=== PATIENT | female | born 1930 | race Caucasian/White ===

== ENCOUNTER 2017-09-18 18:39 | Emergency (ER) | payer OTHER, MEDICAID ==
[~2017-09-18] VITALS: Ht 160 cm; Wt 68.0 kg
[2017-09-18 18:40] VITALS: BP_SYST 129
[2017-09-18 19:23] LABS: BASOPHILS % (AUTO) 0.3 % (0.0-2.0); EOSINOPHILS # (AUTO) 0.1 K/uL (0.0-0.4); HEMATOCRIT 34.9 % (36-48); HEMOGLOBIN 11.9 g/dL (12.0-16.0); LYMPHOCYTES # (AUTO) 1.4 K/uL (1.0-5.5); LYMPHOCYTES % (AUTO) 19.2 % (20.5-51.5); MEAN CORPUSCULAR HEMOGLOBIN 32 pg (27-31); MEAN CORPUSCULAR HGB CONC 34 % (32-36); MEAN CORPUSCULAR VOLUME 94 fL (79.0-98.0); MONOCYTES # (AUTO) 0.4 K/uL (0.0-1.0); MONOCYTES % (AUTO) 5.9 % (1.7-9.3); NEUTROPHILS # (AUTO) 5.4 K/uL (1.8-7.7); NEUTROPHILS % (AUTO) 73.6 % (40.0-70.0); PLATELET COUNT (AUTO) 277 K/uL (130-430); RED BLOOD CELL COUNT(AUTO) 3.71 MIL/uL (4.2-6.2); RED CELL DISTRIBUTION WIDTH 13.1 % (9.0-15.0); WHITE BLOOD COUNT (AUTO) 7.3 K/uL (4.8-10.8)
[2017-09-18 19:24] LABS: BILIRUBIN,URINE NEGATIVE (NEGATIVE); BLOOD, URINE NEGATIVE (NEGATIVE); CLARITY/URINE CLOUDY (CLEAR); COLOR,URINE YELLOW (YELLOW); GLUCOSE,URINE NEGATIVE (NEGATIVE); KETONES,URINE TRACE (NEGATIVE); LEUKOCYTE ESTERASE ,URINE 1+ (NEGATIVE); NITRITE, URINE NEGATIVE (NEGATIVE); PROTEIN URINE TRACE (NEGATIVE); UROBILINOGEN,URINE 0.2 (0.2-1.0)
[2017-09-18 19:36] LABS: ANION GAP 9 (5-15); CHLORIDE 104 mmol/L (98-107); CREATININE 0.94 mg/dL (0.55-1.30); GLUCOSE 125 mg/dL (70-99); POTASSIUM 3.5 mmol/L (3.5-5.1); SODIUM SERUM 138 mmol/L (136-145); UREA NITROGEN, BLOOD 16 mg/dL (8-21)
[2017-09-18 19:41] LABS: ALANINE AMINOTRANSFERASE 13 U/L (12-78); ALBUMIN 3.2 g/dL (3.4-4.8); ASPARTATE AMINOTRANSFERASE 10 U/L (10-37); TOTAL BILIRUBIN 1.8 mg/dL (0.0-1.0)
[2017-09-18 19:45] LABS: BARBITURATE, URINE NEGATIVE (NEG <=200); BENZODIAZEPINE, URINE NEGATIVE (NEG <=150); CANNABINOID, URINE NEGATIVE (NEG <=50); COCAINE, URINE NEGATIVE (NEG <=150); METHAMPHETAMINES SCREEN,URINE NEGATIVE (NEG <=500); URINE AMPHETAMINE NEGATIVE (NEG <=500); URINE METHADONE NEGATIVE (NEG <=200)
[2017-09-18 19:46] LABS: OPIATE, URINE NEGATIVE (NEG <=100); PHENCYCLIDINE SCREEN,URINE NEGATIVE (NEG <=25); UR TRICYCLIC ANTIDEPRESSANTS NEGATIVE (NEG <=300); URINE OXYCODONE SCREEN NEGATIVE (NEG <=100); URINE PROPOXYPHENE SCREEN NEGATIVE (NEG <=300)
[2017-09-18 20:02] LABS: BACTERIA,URINE MANY /HPF (None Seen); MUCUS,URINE None Seen /LPF (None Seen); RBC,URINE 0-3 /HPF (0-3)
[2017-09-18 20:03] LABS: URINE AMORPHOUS URATE 3+ /HPF (None Seen)
[2017-09-18] MEDS: cefTRIAXone 1 GM VIAL IM ONE (22:46)
[2017-09-18 23:46] VITALS: BP_SYST 143
== END 2017-09-18 23:46 | disposition home or self-care (01) ==
LOC: SED 18:39
DX: N39.0 Urinary tract infection, site not specified (principal); R55 Syncope and collapse; I10 Essential (primary) hypertension
CPT/HCPCS: 36415; 70450; 71045; 80053; 80307; 81000; 83605; 84484; 85025; 85610; 85730; 87040; 87086; 87186; 93005; 96372; 99285; J0696

== ENCOUNTER 2020-09-08 13:31 | Inpatient (IN) | payer OTHER, SELFPAY ==
[~2020-09-08] VITALS: Ht 170.2 cm; Wt 71.7 kg
[2020-09-08 13:34] VITALS: BP_SYST 121
[2020-09-08] MEDS ORDERED: FURO-149 PO (13:54)
[2020-09-08] MEDS ORDERED: LISI20TA30 PO (13:54)
[2020-09-08] MEDS ORDERED: ESCI5TAB16 PO (13:54)
[2020-09-08] MEDS ORDERED: ASPI-1393 PO (13:54)
[2020-09-08] MEDS ORDERED: LIP20 PO (13:54)
[2020-09-08] MEDS ORDERED: BISA-95 PO (13:54)
[2020-09-08] MEDS ORDERED: NACL 0.9% 1,000 ML IV ONE (14:00)
[2020-09-08] MEDS ORDERED: SENN8.6T19 PO (14:02)
[2020-09-08] MEDS ORDERED: LORA-259 PO (14:02)
[2020-09-08] MEDS ORDERED: ATRMDI INH (14:02)
[2020-09-08] MEDS ORDERED: OLAN2.5T29 PO (14:02)
[2020-09-08] MEDS ORDERED: NITR0.4T47 SL (14:02)
[2020-09-08 14:17] LABS: BASOPHILS # (AUTO) 0.1 K/uL (0.0-0.2); BASOPHILS % (AUTO) 0.6 % (0.0-2.0); EOSINOPHILS # (AUTO) 0.1 K/uL (0.0-0.4); EOSINOPHILS % (AUTO) 0.5 % (0.0-4.0); HEMATOCRIT 38.5 % (36-48); HEMOGLOBIN 12.6 g/dL (12.0-16.0); LYMPHOCYTES # (AUTO) 1.9 K/uL (1.0-5.5); LYMPHOCYTES % (AUTO) 19.3 % (20.5-51.5); MEAN CORPUSCULAR HEMOGLOBIN 31 pg (27-31); MEAN CORPUSCULAR HGB CONC 33 % (32-36); MEAN CORPUSCULAR VOLUME 95 fL (79.0-98.0); MONOCYTES # (AUTO) 0.7 K/uL (0.0-1.0); MONOCYTES % (AUTO) 6.7 % (1.7-9.3); NEUTROPHILS # (AUTO) 7.3 K/uL (1.8-7.7); NEUTROPHILS % (AUTO) 72.9 % (40.0-70.0); PLATELET COUNT (AUTO) 286 K/uL (130-430); RED BLOOD CELL COUNT(AUTO) 4.07 MIL/uL (4.2-6.2); RED CELL DISTRIBUTION WIDTH 13.3 % (9.0-15.0)
[2020-09-08 14:28] LABS: ANION GAP 7 (5-15); CHLORIDE 108 mmol/L (98-107); CREATININE 1.46 mg/dL (0.55-1.30); GLUCOSE 137 mg/dL (70-99); POTASSIUM 5.2 mmol/L (3.5-5.1); SODIUM SERUM 142 mmol/L (136-145); UREA NITROGEN, BLOOD 33 mg/dL (8-21)
[2020-09-08 14:31] LABS: PROTHROMBIN TIME 9.9 SECS (9.5-12.5)
[2020-09-08 14:34] LABS: ALANINE AMINOTRANSFERASE 23 U/L (12-78); ALBUMIN 3.5 g/dL (3.4-4.8); ASPARTATE AMINOTRANSFERASE 17 U/L (10-37); TOTAL BILIRUBIN 1.8 mg/dL (0.0-1.0)
[2020-09-08] MEDS ORDERED: cefTRIAXone 1 GM VIAL ONE (15:12)
[2020-09-08] MEDS ORDERED: metroNIDAZOLE 500 mg/NS 100 ML IV ONE ×2 (15:15→18:00)
[2020-09-08] MEDS ORDERED: NACL 0.9% 1,000 ML IV SCH (15:15)
[2020-09-08] MEDS ORDERED: NACL 0.9% 2,000 ML IV ONE (15:15)
[2020-09-08] MEDS ORDERED: ACETAMINOPHEN 325 MG TABLET PO PRN (15:15)
[2020-09-08] MEDS ORDERED: cefTRIAXone 1 GM in D5W 50 ML IV ONE (15:15)
[2020-09-08 16:55] LABS: BILIRUBIN,URINE NEGATIVE (NEGATIVE); BLOOD, URINE NEGATIVE (NEGATIVE); COLOR,URINE YELLOW (YELLOW); GLUCOSE,URINE NEGATIVE (NEGATIVE); KETONES,URINE TRACE (NEGATIVE); LEUKOCYTE ESTERASE ,URINE 1+ (NEGATIVE); NITRITE, URINE POSITIVE (NEGATIVE); PROTEIN URINE NEGATIVE (NEGATIVE); UROBILINOGEN,URINE 0.2 (0.2-1.0)
[2020-09-08 17:06] LABS: CLARITY/URINE HAZY (CLEAR)
[2020-09-08 17:17] VITALS: BP_SYST 157
[2020-09-08 17:22] LABS: RBC,URINE 0-3 /HPF (0-3)
[2020-09-08 17:23] LABS: BACTERIA,URINE MANY /HPF (None Seen)
[2020-09-08] MEDS ORDERED: QUEtiapine FUMARATE 25 MG TABLET PO ONE (19:15)
[2020-09-08] MEDS ORDERED: cloNIDine HCL 0.1 MG TABLET PO PRN (19:30)
[2020-09-08 20:00] VITALS: BP_SYST 132
[2020-09-08] MEDS ORDERED: CIPROFLOXACIN LACT 200 MG/D5W 100 ML IV SCH (21:00)
[2020-09-08] MEDS: metroNIDAZOLE 250 MG TABLET PO SCH (21:08)
[2020-09-08] MEDS: ENOXAPARIN SODIUM 30 MG/0.3 ML SYRINGE SUBCUT SCH (21:08)
[2020-09-08] MEDS: LACTOBACILLUS RHAMNOSUS GG 1 CAP CAPSULE PO SCH (21:09)
[2020-09-08] MEDS: CIPROFLOXACIN HCL 500 MG TABLET PO SCH (21:09)
[2020-09-08] MEDS: D5/0.45 NS 1,000 ML IV SCH (21:10)
[2020-09-09 01:29] VITALS: BP_SYST 104
[2020-09-09] MEDS: D5/0.45 NS 1,000 ML IV SCH ×3 (05:37→21:55)
[2020-09-09] MEDS: metroNIDAZOLE 250 MG TABLET PO SCH ×3 (05:37→21:34)
[2020-09-09 06:34] LABS: ALANINE AMINOTRANSFERASE 21 U/L (12-78); ALBUMIN 2.5 g/dL (3.4-4.8); ANION GAP 7 (5-15); ASPARTATE AMINOTRANSFERASE 17 U/L (10-37); CALCIUM 7.8 mg/dL (8.4-11.0); CHLORIDE 110 mmol/L (98-107); CREATININE 1.07 mg/dL (0.55-1.30); GLUCOSE 95 mg/dL (70-99); PHOSPHORUS 3.6 mg/dL (2.7-4.5); POTASSIUM 3.4 mmol/L (3.5-5.1); SODIUM SERUM 142 mmol/L (136-145); TOTAL BILIRUBIN 1.4 mg/dL (0.0-1.0); UREA NITROGEN, BLOOD 23 mg/dL (8-21)
[2020-09-09 06:39] LABS: BASOPHILS % (AUTO) 0.2 % (0.0-2.0); EOSINOPHILS # (AUTO) 0.1 K/uL (0.0-0.4); EOSINOPHILS % (AUTO) 0.7 % (0.0-4.0); HEMOGLOBIN 10.4 g/dL (12.0-16.0); LYMPHOCYTES # (AUTO) 1.4 K/uL (1.0-5.5); LYMPHOCYTES % (AUTO) 18.3 % (20.5-51.5); MEAN CORPUSCULAR HEMOGLOBIN 32 pg (27-31); MEAN CORPUSCULAR HGB CONC 34 % (32-36); MEAN CORPUSCULAR VOLUME 94 fL (79.0-98.0); MONOCYTES # (AUTO) 0.6 K/uL (0.0-1.0); MONOCYTES % (AUTO) 8.1 % (1.7-9.3); NEUTROPHILS # (AUTO) 5.7 K/uL (1.8-7.7); NEUTROPHILS % (AUTO) 72.7 % (40.0-70.0); PLATELET COUNT (AUTO) 205 K/uL (130-430); RED CELL DISTRIBUTION WIDTH 13.1 % (9.0-15.0); WHITE BLOOD COUNT (AUTO) 7.8 K/uL (4.8-10.8)
[2020-09-09 08:00] VITALS: BP_SYST 110
[2020-09-09] MEDS: LACTOBACILLUS RHAMNOSUS GG 1 CAP CAPSULE PO SCH ×2 (08:43→21:34)
[2020-09-09] MEDS: CIPROFLOXACIN HCL 500 MG TABLET PO SCH ×2 (10:08→21:35)
[2020-09-09 12:12] VITALS: BP_SYST 113
[2020-09-09] MEDS ORDERED: POTASSIUM CHLORIDE 20 MEQ TAB.PRT.SR PO ONE (14:00)
[2020-09-09 16:18] VITALS: BP_SYST 106
[2020-09-09] MEDS: QUEtiapine FUMARATE 25 MG TABLET PO SCH (17:14)
[2020-09-09 20:00] VITALS: BP_SYST 113
[2020-09-09] MEDS: ENOXAPARIN SODIUM 30 MG/0.3 ML SYRINGE SUBCUT SCH (21:35)
[2020-09-10 00:12] VITALS: BP_SYST 110
[2020-09-10] MEDS: metroNIDAZOLE 250 MG TABLET PO SCH ×4 (06:00→21:35)
[2020-09-10 06:47] LABS: BASOPHILS % (AUTO) 0.3 % (0.0-2.0); EOSINOPHILS # (AUTO) 0.1 K/uL (0.0-0.4); EOSINOPHILS % (AUTO) 1.4 % (0.0-4.0); HEMATOCRIT 32.9 % (36-48); HEMOGLOBIN 11.1 g/dL (12.0-16.0); LYMPHOCYTES # (AUTO) 1.8 K/uL (1.0-5.5); LYMPHOCYTES % (AUTO) 25.5 % (20.5-51.5); MEAN CORPUSCULAR HEMOGLOBIN 32 pg (27-31); MEAN CORPUSCULAR HGB CONC 34 % (32-36); MEAN CORPUSCULAR VOLUME 95 fL (79.0-98.0); MONOCYTES # (AUTO) 0.5 K/uL (0.0-1.0); MONOCYTES % (AUTO) 7.9 % (1.7-9.3); NEUTROPHILS # (AUTO) 4.5 K/uL (1.8-7.7); NEUTROPHILS % (AUTO) 64.9 % (40.0-70.0); PLATELET COUNT (AUTO) 226 K/uL (130-430); RED BLOOD CELL COUNT(AUTO) 3.46 MIL/uL (4.2-6.2); RED CELL DISTRIBUTION WIDTH 13.3 % (9.0-15.0); WHITE BLOOD COUNT (AUTO) 6.9 K/uL (4.8-10.8)
[2020-09-10 07:15] LABS: TOTAL IRON BIND. CAPACITY 155 ug/dL (250-450)
[2020-09-10 07:27] LABS: ALANINE AMINOTRANSFERASE 24 U/L (12-78); ALBUMIN 2.7 g/dL (3.4-4.8); ANION GAP 7 (5-15); ASPARTATE AMINOTRANSFERASE 19 U/L (10-37); CALCIUM 8.4 mg/dL (8.4-11.0); CHLORIDE 111 mmol/L (98-107); CREATININE 1.08 mg/dL (0.55-1.30); GLUCOSE 85 mg/dL (70-99); POTASSIUM 4.3 mmol/L (3.5-5.1); SODIUM SERUM 142 mmol/L (136-145); THYROID STIMULATING HORMONE 1.55 uIu/mL (0.36-3.74); TOTAL BILIRUBIN 1.1 mg/dL (0.0-1.0); UREA NITROGEN, BLOOD 17 mg/dL (8-21)
[2020-09-10 08:25] VITALS: BP_SYST 134
[2020-09-10 08:43] LABS: CHOLESTEROL 110 mg/dL (<200); HDL CHOLESTEROL 39 mg/dL (>55); LDL CHOLESTEROL 62 mg/dL (<100); TRIGLYCERIDES 105 mg/dL (30-150)
[2020-09-10] MEDS: LACTOBACILLUS RHAMNOSUS GG 1 CAP CAPSULE PO SCH ×2 (08:47→21:36)
[2020-09-10] MEDS: CIPROFLOXACIN HCL 500 MG TABLET PO SCH ×3 (11:00→21:35)
[2020-09-10] MEDS: D5/0.45 NS 1,000 ML IV SCH ×2 (11:30→21:36)
[2020-09-10] MEDS ORDERED: GENTAMICIN 100 mg/50 mL NS 50 ML IV ONE (12:15)
[2020-09-10 12:16] VITALS: BP_SYST 148
[2020-09-10 12:23] LABS: BILIRUBIN,URINE NEGATIVE (NEGATIVE); BLOOD, URINE 2+ (NEGATIVE); CLARITY/URINE CLEAR (CLEAR); COLOR,URINE YELLOW (YELLOW); GLUCOSE,URINE NEGATIVE (NEGATIVE); KETONES,URINE NEGATIVE (NEGATIVE); LEUKOCYTE ESTERASE ,URINE NEGATIVE (NEGATIVE); NITRITE, URINE NEGATIVE (NEGATIVE); PH,URINE 5.5 (5.0-8.0); PROTEIN URINE 1+ (NEGATIVE); UROBILINOGEN,URINE 0.2 (0.2-1.0)
[2020-09-10] MEDS ORDERED: CIPR500T5 PO (12:25)
[2020-09-10] MEDS ORDERED: LACT1CAP57 PO (12:25)
[2020-09-10] MEDS ORDERED: METR250T36 PO (12:25)
[2020-09-10 12:46] LABS: BACTERIA,URINE None Seen /HPF (None Seen); CALCIUM OXALATE CRYSTALS,UR None Seen /HPF (None Seen); CALCIUM PHOSPHATE CRYSTALS,UR None Seen /HPF (None Seen); TRICHOMONAS,URINE None Seen /HPF (None Seen); WBC,URINE NONE SEEN /HPF (0-3); YEAST,URINE None Seen /HPF (None Seen)
[2020-09-10 16:46] VITALS: BP_SYST 156
[2020-09-10] MEDS: QUEtiapine FUMARATE 25 MG TABLET PO SCH (18:00)
[2020-09-10 20:00] VITALS: BP_SYST 180
[2020-09-10] MEDS: ENOXAPARIN SODIUM 30 MG/0.3 ML SYRINGE SUBCUT SCH (21:43)
[2020-09-11] MEDS: metroNIDAZOLE 250 MG TABLET PO SCH ×2 (06:00→14:14)
[2020-09-11 07:39] VITALS: BP_SYST 167
[2020-09-11] MEDS: LACTOBACILLUS RHAMNOSUS GG 1 CAP CAPSULE PO SCH (10:22)
[2020-09-11] MEDS: CIPROFLOXACIN HCL 500 MG TABLET PO SCH (10:22)
[2020-09-11 11:08] VITALS: BP_SYST 145
[2020-09-11 12:15] VITALS: BP_SYST 145
== END 2020-09-11 14:55 | disposition home health service (06) | DRG 871 ==
LOC: SED 13:31 → STU 15:12
PROVIDERS: ADMIT Internal Medicine; ATTEND Internal Medicine
DX: A41.9 Sepsis, unspecified organism (principal); N17.0 Acute kidney failure with tubular necrosis; G93.41 Metabolic encephalopathy; N39.0 Urinary tract infection, site not specified; E44.0 Moderate protein-calorie malnutrition; K52.9 Noninfective gastroenteritis and colitis, unspecified; I10 Essential (primary) hypertension; Z20.822 Contact with and (suspected) exposure to COVID-19; F03.90 Unspecified dementia, unspecified severity, without behavioral disturbance, psychotic disturbance, mood disturbance, and anxiety; E86.0 Dehydration; E87.5 Hyperkalemia; Z68.24 Body mass index [BMI] 24.0-24.9, adult; Z79.82 Long term (current) use of aspirin; Z79.84 Long term (current) use of oral hypoglycemic drugs; Z79.899 Other long term (current) drug therapy; Z90.710 Acquired absence of both cervix and uterus
CPT/HCPCS: 36415; 71045; 76700-TC; 80053; 80061; 81000-TC; 82607; 83540-TC; 83550-TC; 83605; 83735-TC; 83880; 84100-TC; 84443-TC; 84484; 85025; 85610-TC; 85730-TC; 87040-TC; 87081; 87086; 93005; 93306; 96361; 96365; 96368; 97116-GP; 97530-GP; 99291; G0378; J0696; J0744; J1580; J1650; J3490; J7030